=== PATIENT | female | born 1990 | race Caucasian/White ===

== ENCOUNTER 2016-07-12 00:13 | Emergency (ER) | payer SELFPAY ==
[~2016-07-12] VITALS: Ht 154.9 cm; Wt 50.0 kg
[2016-07-12 00:17] VITALS: BP 116/59
[2016-07-12] MEDS ORDERED: DIPHENHYDRAMINE 50MG/ML VIAL IV ONE (01:00)
[2016-07-12] MEDS ORDERED: PREDNISONE 20MG TABLET PO ONE (01:00)
[2016-07-12] MEDS ORDERED: FAMOTIDINE 20MG/2ML VIAL IV ONE (01:00)
== END 2016-07-12 02:35 | disposition home or self-care (01) ==
LOC: ER 01:16
DX: T78.40XA Allergy, unspecified, initial encounter (principal); R21 Rash and other nonspecific skin eruption; X58.XXXA Exposure to other specified factors, initial encounter; Y93.89 Activity, other specified; Y99.8 Other external cause status; Y92.89 Other specified places as the place of occurrence of the external cause
CPT/HCPCS: 96374; 96375; 99284; J1200; J3490; J7512; Z7610

== ENCOUNTER 2018-03-06 18:05 | Emergency (ER) | payer MEDICAID ==
[~2018-03-06] VITALS: Ht 154.9 cm; Wt 59.0 kg
[2018-03-06 18:45] VITALS: BP 112/73
[2018-03-06] MEDS ORDERED: FLUO40CA49 MT (18:45)
== END 2018-03-06 22:50 | disposition left against medical advice (07) ==
LOC: ER 18:05
DX: K08.89 Other specified disorders of teeth and supporting structures (principal); Z53.21 Procedure and treatment not carried out due to patient leaving prior to being seen by health care provider